=== PATIENT | female | born 1935 | race Caucasian/White ===

== ENCOUNTER 2018-07-25 05:31 | Inpatient (IN) ==
[2018-07-25] MEDS ORDERED: Sodium Chlor 0.9% Inj 40 ML, Bupivacaine Liposo PF 1.3% Inj 20 ML P-ARTICULR SCH ×2 (06:15)
[2018-07-25] MEDS ORDERED: Metoprolol Tartrate 25 MG Tablet PO ONE (06:20)
[2018-07-25] MEDS ORDERED: Chlorhexidine Gluconate 2% 1 Pack (2 Cloths) TOPICAL ONE (06:20)
[2018-07-25] MEDS ORDERED: Bupivacaine/Epinephrine Inj 0.25% 50 ML Vial ONE (06:49)
[2018-07-25] MEDS ORDERED: Sodium Chlor 0.9% Inj 500 ML IV.SIG SCH (07:00)
[2018-07-25] MEDS ORDERED: ceFAZolin 2 GM Premix Inj 2 GM/50 ML PIGGYBACK IV.SIG SCH (07:00)
[2018-07-25] MEDS ORDERED: Vancomycin Inj 1,000 MG in Sodium Chlor 0.9% Inj 250 ML IV.SIG SCH (07:00)
[2018-07-25] MEDS ORDERED: Bupivacaine/Dextrose 0.75% Inj 2 ML Ampul ONE (07:04)
[2018-07-25] MEDS ORDERED: Propofol Inj 500 MG/50 ML Vial ONE (07:05)
[2018-07-25] MEDS ORDERED: SODIUM CHLOR 0.9% IV.SIG SCH (07:30)
[2018-07-25] MEDS ORDERED: TRANEXAMIC ACID IV.SIG SCH (07:30)
[2018-07-25] MEDS ORDERED: Post-op Orders (for Pharmacy) OTHER STA (07:39)
[2018-07-25] MEDS ORDERED: Temazepam 15 MG Capsule PO PRN (07:39)
[2018-07-25] MEDS ORDERED: Morphine Inj 4 MG/ML Vial IV.PUSH PRN (07:39)
[2018-07-25] MEDS ORDERED: Bisacodyl 10 MG Supp RECTAL PRN (07:39)
--- NOTE | 2018-07-25 09:34 | P.OP ---
- Preoperative Diagnosis (1) Osteoarthritis of right knee - Postoperative Diagnosis (1) Osteoarthritis of right knee Date of procedure: 07/25/18 Procedure: Right total knee arthroplasty Anesthesia: GETA, regional, local Surgeon: Bryant Coughlin MD Roll Bucker: Neisha Ross PA-C Operation and Findings: EBL: 50 cc INDICATION: This patient presents with long-standing arthritis of the knee. Attachment record documents conservative measures. The patient now presents for surgical treatment. NOTE: Neisha Ross PA-C was present for the entire surgical procedure as my assistant finance manager. In my medical opinion her skill and care was necessary for proper management of this patient. TOURNIQUET TIME: 57 minutes COMPANY: [employer] FEMUR: Size 4, cruciate retaining TIBIA: Size 3, fixed-bearing PATELLA: 29 mm POLYETHYLENE INSERT: Kinematic retaining, 11 mm PROCEDURE: This patient was brought the operating room and anesthetized in the supine position. The patient was positioned supine on the table. The tourniquet was placed about the thigh, and the leg was scrubbed with alcohol followed by Hibiclens followed by ChloraPrep and draped sterilely. A timeout was done, and antibiotics were given. After exsanguination the tourniquet was inflated to 250 mmHg. An anterior incision was made and a median parapatellar arthrotomy was performed. The patella was released laterally and subluxed allowing freehand cut of the patella which was then sized. A metal cap was placed over the exposed patellar surface for protection. A pilot instructor hole was placed in the distal femur allowing a 5 valgus cut removing 10 mm from the distal femur. Anterior posterior and chamfer cuts were made. The posterior stabilize osteotomy was not made. The attention was directed to the tibia. Retractors were positioned. The external alignment guide was used allowing the lateral tibia to be used as referencing guide and cut utilizing an oscillating saw taking care to avoid any injury to the surrounding soft tissues. We intentionally allow this to be an approximately 2 degrees of varus. The femoral cut was probably 6 degrees of varus. It had been templated for 4 degrees. Because of the nature of the valgus deformity of the femur, the initial cut at 0 degrees for the tibia allow this to be in too much valgus deformity. This was recut for 2 degrees of varus. This was sized properly. Trial reduction showed that the insert fit nicely. The patient had range of motion extension 0 flexion 125. A medial release was not necessary. The bony surfaces prepared. On the back table 2 packets of methylmethacrylate were mixed. The components were cemented. Excess cement was removed. The tourniquet let down and hemostasis was controlled. The final plastic insert was inserted. Range of motion was the same as previously noted. The arthrotomy was repaired with interrupted #1 Vicryl suture, subcutaneous tissue 2-0 Vicryl suture and skin with metallic nancy A sterile dressing was applied. Sponge counts, needle counts and instrument counts were all correct. The patient tolerated procedure well and was taken to recovery in satisfactory condition. FINDINGS: There was moderate to severe osteoarthritis. Bone quality was excellent. The patient had a general anesthetic with an abductor canal block and local anesthesia. There was no complication appreciated.
--- NOTE | 2018-07-25 09:35 | P.DCO ---
- Physical Therapy Physical Therapy: Gait training (3 times per week for 2 weeks) Knee: Total knee, Protocol: Right Right Lower Extremity Weight Bearing: Weight bearing as tolerated - Nursing Dressing changes: Do not change dressing (Do not anticipate home health care nurse, unless advised by physical therapist) - Certification Need for Home Health services: I have seen patient Maribel Mena on 07/25/18. My clinical findings support the need for the requested home health care services because: Homebound Certification: I certify that my clinical findings support that this patient is homebound because:
[2018-07-25] MEDS ORDERED: fentaNYL Citrate Inj 100 MCG/2 ML Ampul ONE (10:02)
[2018-07-25] MEDS ORDERED: *Meperidine Inj 25 MG/ML Vial PERIprocedural Use ONLY ONE (10:04)
[2018-07-25] MEDS: amLODIPine 5 MG Tablet PO SCH (10:30)
[2018-07-25] MEDS: Senna/Docusate Sodium 8.6/50 MG Tablet PO SCH ×2 (10:36→20:13)
[2018-07-25] MEDS: Multivitamin/Minerals Therapeutic Tablet PO SCH ×2 (10:36→20:12)
--- NOTE | 2018-07-25 11:15 | XR ---
EXAM DATE: 07/25/2018 11:05 AM EST AGE/SEX: 82 years / Female INDICATIONS: Post op right total knee. CLINICAL DATA: This is the patient's initial encounter. Patient reports that signs and symptoms have been present for 1 day and indicates a pain score of 5/10. MEDICAL/SURGICAL HISTORY: None. None. COMPARISON: None. FINDINGS: AP and lateral views of the right knee were obtained and demonstrate the patient is status post arthr oplasty. The femoral and tibial components are intact and in normal alignment. There are postoperativ e change involving the patella. Overlying anterior skin nancy are present. There is soft tissue swe lling and gas. CONCLUSION: Expected postoperative changes status post arthroplasty. Electronically signed by: Mychal Orellana MD 07/25/2018 11:14 AM EST
[2018-07-25] MEDS: ceFAZolin 1 GM Premix Inj 1 GM/50 ML PIGGYBACK IV.SIG SCH ×2 (15:44→20:12)
[2018-07-25] MEDS: Famotidine 20 MG Tablet PO SCH ×2 (15:44→20:12)
[2018-07-25] MEDS ORDERED: traZODone 50 MG Tablet PO PRN (21:00)
--- NOTE | 2018-07-25 23:35 | P.DS ---
Date of admission: 07/25/18 05:31 Primary care physician: Kulwant Lock MD Attending physician on discharge: Bryant Coughlin Anticipated date of discharge: 07/26/18 Brief History from admission: Ms. Mena has a multiyear history of right knee pain that began to accelerate early 2017. She underwent arthroscopic knee surgery in 2009. She did well for a few years. Because she was taking plavix she was limited in which medications she could take. She had multiple cortisone injections but continued to decline. Surgical treatment was eventually recommended in the form of right total knee arthroplasty. The patient agreed and now presents for the above. DS: Diagnosis - Discharge Diagnosis (1) Osteoarthritis of right knee Status: Acute DS: Medications - Discharge Medications Prescriptions: aspirin 81 mg PO BID 30 Days #60 tab hydrocodone-acetaminophen 1 tab PO Q4H PRN #42 tab PRN Reason: Acute Pain DS: Summary Hospital Course: Surgical treatment was performed on the day of admission without complication. She recovered well in PACU and was transferred to the orthopaedic floor. Pain was controlled with IV and oral medications. She was compliant with her therapy and all total knee precautions. After 1 day she was found to be stable and discharged home with home health care. She was instructed to ice the operative site twice daily, to pursue a high fiber diet and to continue therapy. She was given prescriptions for norco and ASA. - Time Spent with Patient Total time spent providing and/or coordinating discharge services: Greater than 30 minutes - Quality: VTE Deep Vein Thrombosis/Pulmonary Embolism Present on Admission: No Exam Vital signs: Vital Signs 07/25/18 06:29 07/25/18 06:45 07/25/18 09:53 Temperature 98.4 F 97.8 F Pulse Rate 73 64 69 Respiratory Rate 18 20 Blood Pressure 175/80 H 147/67 H Pulse Oximetry 95 94 L 96 07/25/18 10:00 07/25/18 10:15 07/25/18 10:30 Temperature Pulse Rate 55 L 53 L 55 L Respiratory Rate 22 23 19 Blood Pressure 152/88 H 139/64 137/67 Pulse Oximetry 97 96 98 07/25/18 10:40 07/25/18 10:45 07/25/18 11:00 Temperature Pulse Rate 60 59 L Respiratory Rate 18 15 Blood Pressure 141/66 H 140/64 Pulse Oximetry 98 98 95 07/25/18 12:00 07/25/18 12:30 07/25/18 16:00 Temperature 97.5 F L 97.3 F L 97.5 F L Pulse Rate 64 66 69 Respiratory Rate 18 18 18 Blood Pressure 122/59 L 126/50 L 147/68 H Pulse Oximetry 95 93 L 95 07/25/18 19:45 Temperature 97.3 F L Pulse Rate 83 Respiratory Rate 16 Blood Pressure 149/65 H Pulse Oximetry 99 Intake & Output 07/25/18 07/25/18 07/26/18 06:59 18:59 06:59 Intake Total 1356.5 / 1356.5 50 / 50 Output Total 50 / 50 Balance 1306.5 / 1306.5 50 / 50 Weight 64.5 kg 64.5 kg Intake: IV 1356.5 / 1356.5 50 / 50 LR 1000 mL Inj 1,000 ML @ 30 900 / 900 mls/hr IV.SIG .Q24H [facility] Rx#: [id number] Cyklokapron Inj 645 MG In NS 106.5 / 106.5 Inj 100 ML @ 200 mls/hr IV.SIG ONCE [facility] Rx#:[id number] Vancomycin Inj 1,000 MG In NS 250 / 250 Inj 250 ML @ 250 mls/hr IV.SIG ACCOUNTS RECEIVABLE COORDINATOR [facility] Rx#:[id number] Ancef 1 GM Premix Inj 1 gm In 50 / 50 50 / 50 50 ml @ 100 mls/hr IV.SIG Q6H [facility] Rx#:[id number] Ancef 2 GM Premix Inj 2 gm In 50 / 50 50 ml @ 100 mls/hr IV.SIG ACCOUNTS RECEIVABLE COORDINATOR [facility] Rx#:[id number] Output: Estimated Blood Loss 50 / 50 Other: # Voids 2 Date of Last Bowel Movement 07/25/18 Weight On Admission 64.5 kg Results Procedures completed during hospitalization: Right total knee arthroplasty Labs on day of discharge: Labs from last 24 hours 07/25/18 06:31 Blood Type O Positive Antibody Screen Negative MTS Gel Crossmatch See Detail - Impressions ITS Impressions Knee X-Ray 07/25/18 07:39 CONCLUSION: Expected postoperative changes status post arthroplasty. Discharge Plan - Discharge Disposition Patient Disposition: /Home Health Service - Discharge Condition Condition: Good - Discharge Order Discharge Orders: Discharge Order (Routine); Ordered 07/26/18 Ordered By: Bryant Coughlin - Discharge Details Anticipated Discharge Date: 07/26/18 - Physicians Team Primary Care Provider: Kulwant Lock Attending Provider: Bryant Coughlin Other Providers: [facility] - Rxs /Orders / Referrals /Forms Prescriptions: New aspirin 81 mg Tablet,Chewable 81 mg PO BID 30 Days Qty: 60 RF: 0 hydrocodone-acetaminophen 7.5-325 mg Tablet 1 tab PO Q4H PRN (Reason: Acute Pain) Qty: 42 RF: 0 Continue acidophilus-pectin, citrus [Acidophilus Probiotic] 100 million cell-10 mg Capsule 1 cap PO DAILY amlodipine 5 mg Tablet 5 mg PO DAILY atorvastatin 20 mg Tablet 20 mg PO DAILY calcium carbonate [Calcium 600] 600 mg calcium (1,500 mg) Tablet 600 mg PO BID carvedilol 3.125 mg Tablet 3.125 mg PO BID cholecalciferol (vitamin D3) [Vitamin D3] 5,000 unit Tablet 10,000 unit PO DAILY cholestyramine (with sugar) 4 gram Powder 4 g PO TID clopidogrel [Plavix] 75 mg Tablet 75 mg PO DAILY Qty: 0 RF: 0 denosumab [Prolia] 60 mg/mL Syringe 60 mg SUBCUT [id number] folic acid 1 mg Tablet 1 mg PO DAILY [id number]-[id number] [Creon] 24,000-76,000 -120,000 unit Capsule,Delayed Release(Dr/Ec) 1 cap PO QID ondansetron 4 mg Tablet,Disintegrating 4 mg PO TID PRN (Reason: Nausea) ranitidine HCl 300 mg Tablet 300 mg PO BID tramadol 50 mg Tablet 50 mg PO Q6H PRN (Reason: Pain) trazodone 50 mg Tablet 50 mg PO HS PRN (Reason: Sleep) turmeric 400 mg Capsule 1 cap PO DAILY vedolizumab [Entyvio] 300 mg Recon Soln 300 mg IV Q6W vit C-vit [id number]-wzjtjq-hrh-om-3 [Ocuvite] [id number] zu-mdxy-ur-mg Capsule 1 cap PO DAILY Discontinued aspirin [Aspirin Low Dose] 81 mg Tablet,Delayed Release (Dr/Ec) 81 mg PO DAILY Ambulatory Orders / Order Sets / DME: Adjustable Commode 3-in-1 (1 each) (Routine) Location: Determined by Patient Ordered By: Bryant Coughlin Walker With Front Wheels (1 each) (Routine) Location: Determined by Patient Ordered By: Bryant Coughlin Referrals: Kulwant Lock MD [Primary Care Provider] - See Instructions - Discharge Instructions Patient Printed Instructions: How to Use an Incentive Spirometer (DC), How to Choose and Use a Walker (GEN), Precautions after Total Joint Replacement Surgery (DC), COURTNEY Hose (DC), Knee Immobilizer (DC), Knee Replacement (DC) - Post Discharge Care Plan Care Plan Goals: Discharge Care Plan Goals for RIGHT Total Knee Replacement You have undergone knee replacement surgery. Your doctor replaced your painful joint with an artificial joint to relieve pain and restore movement. Here are some goals to help you heal well. Directions to Meet your Goals: 1. Activity & Exercises: * Take pain medicine as directed by your doctor. * Sit in chairs with arms. The arms make it easier for you to stand up or sit down. * Dont sit for more than 30 to 45 minutes at one time. * Nap if you are tired, but dont stay in bed all day. * Sleep with a pillow under your ankle, not your knee. Be sure to change the position of your leg during the night. * Wear the support stockings you were given in the hospital as directed by your surgeon. 2. Prevent Falls/Injury: The fischer to successful recovery is movement with walking and exercising your knee as directed by your doctor. * Arrange your household to keep the items you need handy. Keep everything else out of the way. * Remove items that may cause you to fall, such as throw rugs and electrical cords. * Use nonslip bath mats, grab bars, an elevated toilet seat, and a shower chair in your bathroom * Sit on a shower stool or chair when you shower to keep from falling. * Until your balance, flexibility, and strength improve, use a cane, crutches, a walker, handrails, or someone to help you. * Keep your hands free by using a backpack, magdi pack, apron, or pockets to carry things * Walk up and down stairs with support. Try one step at a time. Use the railing if possible. * Dont drive until your doctor says its OK. * Dont drive while you are taking opioid pain medicine. 3. Precautions: * Prevent infection. Any infection will need to be treated immediately. Call your doctor right away if you think you might have an infection. * Tell your dentist that you have an artificial joint and take antibiotics as prescribed before any dental work. * Tell all your healthcare providers about your artificial joint before any medical procedure. * Maintain a healthy weight. Get help to lose any extra pounds. Added body weight puts stress on the knee. * Your medications may include blood-thinning medicine to prevent blood clots or antibiotics to prevent infection-prevent any falls or cuts 4. Incision Care: * Prevent infection by washing your hands often. If an infection occurs, it will need to be treated right away. * Call your doctor right away if you think you may have an infection. Symptoms include a fever or an incision that leaks white, green, or yellow fluid. * Don't soak your incision in water until your doctor says its OK. This means no hot tubs, bathtubs, or swimming pools. * Follow your doctor's instructions for changing the dressing. * Dont rub the incision, or apply creams or lotions to it. * If you notice any redness or drainage around the bandage site, contact your surgeon's office immediately. 5. Follow-Up: Do Not miss your follow-up appointment. Keep up with all your appointments and yearly check ups When to call your doctor: Call your doctor right away if you have: Fever of 100.4F (38C) or higher, or as directed by your doctor Shaking chills Stiffness, or inability to move the knee Increased swelling in your leg Increased redness, tenderness, or swelling in or around the knee incision Drainage from the knee incision Increased knee pain Call 911: Call 911 right away if you have: Chest pain Shortness of breath Any pain or tenderness in your calf
[2018-07-26] MEDS: ceFAZolin 1 GM Premix Inj 1 GM/50 ML PIGGYBACK IV.SIG SCH (03:29)
[2018-07-26 06:10] LABS: Hematocrit 29.8 % (35.0-46.0); Hemoglobin 10.4 gm/dL (11.6-15.3)
[2018-07-26] MEDS: Senna/Docusate Sodium 8.6/50 MG Tablet PO SCH ×2 (07:38→08:01)
[2018-07-26] MEDS: amLODIPine 5 MG Tablet PO SCH ×2 (07:38→11:35)
[2018-07-26] MEDS: Famotidine 20 MG Tablet PO SCH ×2 (07:40→08:00)
[2018-07-26] MEDS: Multivitamin/Minerals Therapeutic Tablet PO SCH ×2 (07:41→08:01)
[2018-07-26 12:14] VITALS: BP 119/59; PULSE 67; RESP 18; TEMP 97.7; O2SAT 96
--- NOTE | 2018-07-26 12:56 | P.PNOP ---
Subjective Interval history: Doing well. Moderate right knee pain but controlled with meds. Did not sleep well last night but no other concerns. No new pain. No CP or SOB. Physical Exam Vital signs: Vital Signs 07/25/18 16:00 07/25/18 19:45 07/25/18 23:04 Temperature 97.5 F L 97.3 F L 98.3 F Pulse Rate 69 83 76 Respiratory Rate 18 16 17 Blood Pressure 147/68 H 149/65 H 120/60 Pulse Oximetry 95 99 94 L 07/26/18 03:29 07/26/18 08:00 07/26/18 12:00 Temperature 98 F 97.6 F 97.7 F Pulse Rate 76 68 67 Respiratory Rate 18 16 18 Blood Pressure 159/63 H 132/60 119/59 L Pulse Oximetry 94 L 95 96 Intake & Output 07/25/18 07/26/18 07/26/18 18:59 06:59 18:59 Intake Total 1356.5 / 1356.5 2680 / 2680 Output Total 50 / 50 Balance 1306.5 / 1306.5 2680 / 2680 Weight 64.5 kg 69.6 kg Intake: IV 1356.5 / 1356.5 2000 / 2000 LR 1000 mL Inj 1,000 ML @ 80 1000 / 1000 mls/hr IV.CONT .[id number] [facility] Rx# :[id number] LR 1000 mL Inj 1,000 ML @ 30 900 / 900 900 / 900 mls/hr IV.SIG .Q24H [facility] Rx#: [id number] Cyklokapron Inj 645 MG In NS 106.5 / 106.5 Inj 100 ML @ 200 mls/hr IV.SIG ONCE [facility] Rx#:[id number] Vancomycin Inj 1,000 MG In NS 250 / 250 Inj 250 ML @ 250 mls/hr IV.SIG SHINGLER [facility] Rx#:[id number] Ancef 1 GM Premix Inj 1 gm In 50 / 50 100 / 100 50 ml @ 100 mls/hr IV.SIG Q6H [facility] Rx#:[id number] Ancef 2 GM Premix Inj 2 gm In 50 / 50 50 ml @ 100 mls/hr IV.SIG SHINGLER [facility] Rx#:[id number] Oral 680 / 680 Output: Estimated Blood Loss 50 / 50 Other: # Voids 2 6 Date of Last Bowel Movement 07/25/18 07/25/18 # Bowel Movements 1 Narrative: Sitting up in chair No acute distress RLE Knee dressing intact, moderate SS distal (clean proximal), mild ecchymosis forming Moderate warmth but no erythema +Motor at, +sens, +nvi Neg homans - Constitutional no acute distress Results - Labs CBC & Chem 7: 07/26/18 05:40 Laboratory Results - last 24 hr 07/26/18 05:40 Hgb 10.4 L Hct 29.8 L - Procedures Right total knee arthroplasty Assessment and Plan - Ortho Post Op Day # 1 - Problem List (1) Osteoarthritis of right knee Code(s): M17.11 - Unilateral primary osteoarthritis, right knee Status: Acute - Assessment and Plan pod#1 s/p R TKA Doing well for pod#1. Moderate pain but controlled. Ok to d/c home w [facility] today after PT class. PO pain meds as needed. ASA 81mg PT - WBAT RLE. TKA protocol. CKS at night Change dressing today before discharge then hold dressing changes. F/U in 2 weeks as scheduled.
== END 2018-07-26 14:22 | disposition home health service (06) ==
LOC: HSDI 05:31 → N06 12:25
PROVIDERS: ADMIT Orthopaedic Surgery Orthopaedic Surgery of the Spine; ATTEND Orthopaedic Surgery Orthopaedic Surgery of the Spine